=== PATIENT | female | born 1975 | race Caucasian/White ===

== ENCOUNTER 2017-03-20 09:28 | Emergency (ER) | payer OTHER ==
[~2017-03-20] VITALS: Ht 157.5 cm; Wt 78.9 kg
[~2017-03-20 09:28] MED LIST: HYDR-971 PO; OMEP20CA9 PO; ONDA8TAB12 PO; TRAM50TA PO
[2017-03-20] MEDS ORDERED: HYDROmorphone PF 1 MG/ML DISP.SYRIN IV/SQ PRN (09:45)
[2017-03-20] MEDS ORDERED: IV NORMAL SALINE 1,000ML 1,000 ML IV SCH (10:00)
[2017-03-20] MEDS ORDERED: ONDANSETRON PF 4 MG/2 ML VIAL. IV ONE (10:00)
[2017-03-20 10:01] LABS: BASO # 0.1 x10^3/uL (0.0-0.2); BASO % 1 % (0-3); EOS # 0.3 x10^3/uL (0.0-0.7); EOS % 3 % (0-3); HEMATOCRIT 39.7 % (36.0-47.0); HEMOGLOBIN 13.2 g/dL (12.0-15.5); LYMPH % 18 % (24-48); MEAN CORPUSCULAR HEMOGLOBIN 26 pg (25-35); MEAN CORPUSCULAR HGB CONC 33 g/dL (31-37); MEAN CORPUSCULAR VOLUME 77 fL (79-100); MONO # 0.5 x10^3/uL (0.0-1.1); MONO % 5 % (0-9); NEUT # 7.9 x10^3uL (1.8-7.7); NEUT % 73 % (31-73); PLATELET COUNT 251 x10^3/uL (140-400); RED BLOOD COUNT 5.17 x10^6/uL (3.50-5.40); RED CELL DISTRIBUTION WIDTH 15.2 % (11.5-14.5); WHITE BLOOD COUNT 10.8 x10^3/uL (4.0-11.0)
--- NOTE | 2017-03-20 10:03 | PHYS DOC ---
Past History Past Medical History: Other Past Surgical History: Appendectomy Alcohol Use: None Drug Use: None Adult General Chief Complaint Chief Complaint: ABDOMINAL PAIN HPI HPI 42-year-old female presenting to the emergency department today with right- sided abdominal pain. The pain is in the right lower quadrant. It is sharp pain and she reports feeling like something "popped." She denies nausea or vomiting. She denies fevers or chills. The pain is sharp nonradiating intermittent and without alleviating factors. His been present for 2-3 days. She reports history of an appendectomy and partial bowel resection. Review of systems is negative for chest pain shortness of breath fevers chills nausea or vomiting. All other review of systems is negative unless otherwise noted in history of present illness. ED course: 41-year-old female presenting to the emergency department with right lower quadrant abdominal pain. Afebrile normal blood pressure normal pulse. Physical examination shows a soft nontender abdomen. Surgical scars present. Otherwise lungs are clear to auscultation. Heart has regular rate and rhythm. Otherwise unremarkable. IV established and IV fluids nausea medication and pain medication given in the emergency department today. Blood work sent along with CT the abdomen pelvis. Blood work unremarkable. CT the abdomen pelvis was unremarkable for acute pathology. Radiologist noted mild thickening of the sigmoid colon. I referred the patient to our GI team for colonoscopy. Otherwise on reexamination the patient was feeling much better and her abdomen was soft and nontender on reexamination. The patient's blood pressure was soft and the emergency department when she was laying down and resting. On my reexamination at the patient stand up she was not lightheaded. I rechecked the blood pressure was around 100 systolic. Her symptoms had completely improved. Her blood pressure when she came in was 115 systolic. She was subsequent discharged home. The patient was then discharged home in stable condition to follow up with their primary care physician over the next 2-3 days and GI within the next 2 weeks.. They were to return if their symptoms worsened or if they were concerned for any reason. [id number] discharge instructions and return precautions were given. Patient's questions were answered to their satisfaction. Patient is comfortable plan. Review of Systems Review of Systems SEE ABOVE. Current Medications Current Medications Current Medications Medications (Trade) Dose Ordered Sig/Amarilis Start Time Stop Time Status Last Admin Dose Admin Hydromorphone HCl (Dilaudid) 0.5 mg PRN Q15MIN PRN 03/20/17 09:45 03/21/17 09:44 Ondansetron HCl (Zofran) 4 mg 1X ONCE 03/20/17 10:00 03/20/17 10:01 Sodium Chloride 1,000 ml @ 1,000 mls/hr Q1H 03/20/17 10:00 03/20/17 10:59 Allergies Allergies Allergies Coded Allergies Type Severity Reaction Last Updated Verified tramadol Allergy Intermediate MAKES HER HYPER 05/21/16 Yes Penicillins Adverse Reaction Intermediate FAMILY HX OF REACTION, PT HAS NEVER TAKEN PCN 05/21/16 No codeine Adverse Reaction Intermediate STOMACH UPSET 05/21/16 Yes hydrocodone Adverse Reaction Intermediate NOSE ITCHING 05/21/16 Yes Physical Exam Physical Exam Constitutional: Well developed, well nourished, no acute distress, non-toxic appearance. [] HENT: Normocephalic, atraumatic, bilateral external ears normal, oropharynx moist, no oral exudates, nose normal. [] Eyes: PERRLA, EOMI, conjunctiva normal, no discharge. [] Neck: Normal range of motion, no tenderness, supple, no stridor. [] Cardiovascular:Heart rate regular rhythm, no murmur [] Lungs & Thorax: Bilateral breath sounds clear to auscultation [] Abdomen: see above Skin: Warm, dry, no erythema, no rash. [] Back: No tenderness, no CVA tenderness. [] Extremities: No tenderness, no cyanosis, no clubbing, ROM intact, no edema. [] Neurologic: Alert and oriented X 3, normal motor function, normal sensory function, no focal deficits noted. [] Psychologic: Affect normal, judgement normal, mood normal. [] Current Patient Data Vital Signs Vital Signs Date Time Temp Pulse Resp B/P (MAP) Pulse Ox O2 Delivery O2 Flow Rate FiO2 03/20/17 09:37 98.3 75 20 EKG EKG [] Radiology/Procedures Radiology/Procedures [] Course & Med Decision Making Course & Med Decision Making Pertinent Labs and Imaging studies reviewed. (See chart for details) [] Dragon Disclaimer Dragon Disclaimer This chart was dictated in whole or in part using Voice Recognition software in a busy, high-work load, and often noisy Emergency Department environment. It may contain unintended and wholly unrecognized errors or omissions. Departure Departure: Impression: Primary Impression: Abdominal pain Disposition: 01 HOME, SELF-CARE Condition: STABLE Referrals: CARSON SIMPSON MD (PCP) Patient Instructions: Abdominal Pain (Nonspecific) Additional Instructions: Thank you for allowing us to participate in your care today. 1. You have mild swelling of her sigmoid colon otherwise known as large bowel. I recommend that you get a colonoscopy within the next few weeks to exclude colon cancer. 2. Take nausea and pain medication as prescribed Followup with your primary care physician in 3 days if your symptoms do not improve. Call your Primary Doctor tomorrow and inform them of your visit today. If you do not have a primary care provider you can ask for a list of our primary care providers. Return to the emergency department you have any new or concerning findings. This should be evaluated by the primary care physician and any necessary consulting services for continued management within a few days after discharge. Return to emergency room if you have any new or concerning symptoms including but not limited to fever, chills, nausea, vomiting, intractable pain, any new rashes, chest pain, shortness of air, uncontrolled bleeding, difficulty breathing, and/or vision loss. HUNTER ROWE MD Mar 20, 2017 10:03
[2017-03-20 10:08] LABS: PREG TEST PT QUAL NEGATIVE (NEG)
[2017-03-20 10:17] LABS: CALCIUM 8.9 mg/dL (8.5-10.1); CREATININE 0.6 mg/dL (0.6-1.0); DIRECT BILIRUBIN 0.1 mg/dL (0.0-0.2); GFR 110.2; POTASSIUM 3.8 mmol/L (3.5-5.1); TOTAL BILIRUBIN 0.4 mg/dL (0.2-1.0); TOTAL PROTEIN 7.2 g/dL (6.4-8.2)
[2017-03-20] MEDS ORDERED: IOHEXOL 300 MG/ML 75 ML VIAL. IV ONE (10:35)
--- NOTE | 2017-03-20 10:38 | ACF ---
Admission Criteria Forms ABDOMINAL PAIN Clinical Indications for Admission to Inpatient Care (Place 'X' for any and all applicable criteria): Admission is indicated for ANY ONE of the following(1)(2)(3)(4)(5): [X]I. Inpatient admission required rather than observation care (Also use Abdominal Pain: Observation Care, as appropriate) because of ANY ONE of the following: [ ]a) Severe pain requiring acute inpatient management [X]b) Identification of etiology/finding that requires inpatient care (eg, aortic dissection, free air) [ ]c) Absent bowel sounds with complete ileus(6) [ ]d) Suspected toxic megacolon [ ]e) Severe electrolyte abnormalities requiring inpatient care [ ]f) High fever or infection requiring inpatient admission as indicated by ANY ONE of following(7)(8): [ ] i) Appropriate outpatient or observational care antimicrobial treatment unavailable, not effective, or not feasible [ ] ii) Documented bacteremia [ ] iii) Temperature > 104.9 degrees F (oral) [ ] iv) T >103.1 F (oral) or < 96.8 F(rectal) that does not respond to all emergency treatment measures [ ]g) Signs of intestinal obstruction [B] [ ]h) Hemodynamic instability [ ]i) IV fluid to replace significant ongoing losses (greater than 3 L/m2 per day) (12)(13) [ ]j) Percutaneous or open drainage (eg, abscess, biliary tract ) procedures [ ]k) Parenteral nutrition regimen that must be implemented on inpatient basis [ ]l) Other condition,treatment or monitoring requiring inpatient admission. [ ]II. Peritoneal signs present [ ]III. Surgery needed that cannot be performed on an ambulatory basis. [ ]IV. Evaluation requires patient to not eat or drink for extended period ( eg, more than 24 hours). [ ]V. Contraindications and/or Inappropriate clinical situations for Observational Care in patients with abdominal pain, when ANY ONE of the following is required: [ ]a) Thorough evaluation is required to prevent catastrophic events due to delays in diagnosing (e.g.Mesenteric ischemia) 1,3 [ ]b) Patient with severe pathology or with chronic symptoms unlikely to improve in the ED stay (3) [ ]. General contraindications and/or Inappropriate clinical situations for Observational Care in patients with abdominal pain, when ANY ONE of the following is required: [ ]a) Prediction of prolongation of LOS based on ANY ONE of the following may be considered as a contraindication for observational care 2, 3, 4, 5, 6, 7, 8, 9, 10, 11 [ ]i) Age > 65 yrs. [ ]ii) Patient arriving by ambulance [ ]iii) Patient with high acuity [ ]iv) Patient requiring vital sign monitoring [ ]v) Patient on IV medication [ ]b) Systolic blood pressures 180mmHg 3,12 [ ]c) Patient with altered mental status including delirium and other alteration of consciousness, (3) [ ]d) Patient whose discharge disposition will be to a residential home or rehabilitation home should not be managed in Emergency Department Observation Unit. CMS rule requires 3 days hospital stay before such placement.3,13 [ ]e) Patient with failure to thrive due to broad array of etiologies 3,16,17 [ ]f) Inability to ambulate 3,14 Extended stay beyond goal length of stay may be needed for(2)(3): [ ]a) Persistent abdominal pain with suspected intra-abdominal process [ ]b) Diagnosed condition requiring continued stay (e.g., pancreatitis, complicated diverticulitis) [ ]c) Surgery (e.g., colectomy) The original [facility] content created by [employer] has been revised. The portions of the content which have been revised are identified through the use of italic text or in bold, and [facility] has neither reviewed nor approved the modified material.All other unmodified content is copyright [employer]. Please see references footnoted in the original [facility] edition 2016 LUIS RONDON Mar 20, 2017 10:38
[2017-03-20] MEDS ORDERED: IV NORMAL SALINE 500ML 500 ML IV ONE (11:15)
[2017-03-20 11:16] LABS: BACTERIA,URINE FEW /HPF (0-FEW); BILIRUBIN,URINE NEG (NEG); CLARITY,URINE HAZY; COLOR,URINE AMBER; GLUCOSE,URINE NEG (NEG); NITRITE,URINE NEG (NEG); RBC,URINE 0 /HPF (0-2); SQUAMOUS EPITHELIAL CELL,UR MANY /LPF; UROBILINOGEN,URINE 0.2 mg/dL (0.2 mg/dL)
--- NOTE | 2017-03-20 11:38 | RAD ---
Indication abdominal pain. History of inflammatory bowel disease Axial images through the abdomen and pelvis were obtained. IV contrast, approximately 75 cc of Omnipaque 300 was administered. No oral contrast was administered. The history of appendectomy and cholecystectomy has been provided.. Note is made of a previous examination 03/30/2013. The lung bases are clear. The liver and spleen appear unremarkable. Clips are noted in the gallbladder fossa. The pancreas adrenal glands and kidneys appear normal. A mass inflammatory process or acute finding in the abdomen is not seen. There is no evidence of significant reactivation of inflammatory bowel disease. In the pelvis there is perhaps a very short segment of wall thickening with some minimal surrounding inflammatory changes in the sigmoid colon extending over approximately a 2 cm segment. The finding is not certain but mild diverticular disease is not excluded. Clinical correlation advised. Endoscopy if not recently performed should be considered. A mass in the sigmoid colon is not excluded. There are degenerative changes in the lumbar spine predominantly centered at L5-S1. IMPRESSION: Possible mild thickening, over a short segment, of the sigmoid colon. Small focus of diverticulitis could account for this appearance. Endoscopy if not recently performed should be considered. Mass is not excluded. No additional findings seen in the abdomen or pelvis
[2017-03-20] MEDS ORDERED: ONDA4TAB7 PO (11:52)
[2017-03-20 12:21] VITALS: BP 100/63
== END 2017-03-20 12:30 | disposition home or self-care (01) ==
LOC: ER 09:28
DX: R10.31 Right lower quadrant pain (principal); Z90.49 Acquired absence of other specified parts of digestive tract; Z88.0 Allergy status to penicillin; Z88.6 Allergy status to analgesic agent
CPT/HCPCS: 36415; 74177; 80048; 80076; 81001; 83690; 84703; 85027; 96361; 96374; 96375; 99285; J1170; J2405; J7040; Q9967; J7030

== ENCOUNTER 2021-03-23 15:16 | Emergency (ER) | payer OTHER ==
[~2021-03-23] VITALS: Ht 157.5 cm; Wt 77.0 kg
[~2021-03-23 15:16] MED LIST changes: +HYDR-3165 PO; -HYDR-971 PO; +OMEP20CA16 PO; -OMEP20CA9 PO; +ONDA4TAB7 PO
[2021-03-23 15:28] VITALS: BP 109/59
[2021-03-23] MEDS ORDERED: IBUPROFEN 600 MG TABLET. PO ONE (16:00)
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
[2021-03-23] MEDS ORDERED: CYCL-331 PO (17:26)
[2021-03-23] MEDS ORDERED: BACITRACIN ZINC TOPICAL OINT PACKET. TP ONE (17:30)
== END 2021-03-23 17:35 | disposition home or self-care (01) ==
LOC: ER 15:16
DX: S50.11XA Contusion of right forearm, initial encounter (principal); S80.02XA Contusion of left knee, initial encounter; Z88.0 Allergy status to penicillin; Z88.5 Allergy status to narcotic agent; V43.52XA Car driver injured in collision with other type car in traffic accident, initial encounter; Y93.89 Activity, other specified; Y92.488 Other paved roadways as the place of occurrence of the external cause; Y99.8 Other external cause status
CPT/HCPCS: 73090; 99283-25